=== PATIENT | male | born 1945 | race Caucasian/White ===

== ENCOUNTER 2025-09-01 15:05 | Emergency (ER) | payer MEDICARE, OTHER, SELFPAY ==
[2025-09-01 15:22] VITALS: BP 141/88; PULSE 81; RESP 16; TEMP 36.2; O2SAT 96; BMI 39.3
== END 2025-09-01 17:43 | disposition left against medical advice (07) ==
PROVIDERS: Emergency Provider Emergency Medicine
CPT/HCPCS: 99281